=== PATIENT | male | born 1940 | race Caucasian/White ===

== ENCOUNTER → 2021-11-27 | Outpatient (CLI) | payer MEDICARE ==
[~2021-11-27] MED LIST: ALLOPURINOL300 MG PO; AMLODIPINE5 MG PO; ASPIRIN81 M1 PO; KEFLEX500 MG PO; LASIX20 MG PO; MOTRIN800 MG PO; MULTIPLE VITAMI1 TAB PO; OCEAN NASAL SPR45 ML NAS; PRAVASTATIN SOD40 MG PO; PRESERVISION1 SGL PO; VITAMIN D32000 I1 PO
== END | disposition home or self-care (01) ==
LOC: RAD 09:56
PROVIDERS: ATTEND Orthopaedic Surgery
DX: M16.12 Unilateral primary osteoarthritis, left hip (principal)

== ENCOUNTER 2022-07-23 10:36 | Emergency (ER) | payer MEDICARE ==
[~2022-07-23] VITALS: Ht 170.1 cm; Wt 99.8 kg
[2022-07-23 13:09] LABS: BASO % 0.3 % (0.0-1.0); EOS # 0.1 10*3/uL (0.0-0.4); EOS % 0.6 % (1.0-4.0); HEMATOCRIT 38.7 % (42.0-52.0); LYMPH # 0.7 10*3/uL (1.3-4.4); MEAN CELL VOLUME 85.1 fl (80.0-94.0); MEAN CORPUSCULAR HGB CONC 34.1 g/dl (33.0-37.0); MEAN PLATELET VOLUME 9.1 fl (9.6-12.3); MONO # 0.8 10*3/uL (0.1-1.0); MONO % 8.4 % (3.0-9.0); NEUT # 7.4 10*3/uL (2.3-7.9); NEUT % 82.4 % (47.0-73.0); PLATELET COUNT AUTOMATED 180 10*3/uL (130-400); RED BLOOD COUNT 4.55 10*6/uL (4.50-5.90)
[2022-07-23 13:30] LABS: ALKALINE PHOSPHATASE 73 U/L (46-116); BUN 15 mg/dl (9-23); CHLORIDE 103 mmol/L (98-107); POTASSIUM 3.7 mmol/L (3.4-5.1); SGPT/ALT 27 U/L (10-49); TOTAL PROTEIN 7.2 gm/dL (6.0-8.0)
[2022-07-23] MEDS ORDERED: SEPTDS PO (13:30)
== END 2022-07-23 13:35 | disposition home or self-care (01) ==
LOC: ED 10:36
PROVIDERS: Nurse Practitioner Family
DX: L03.811 Cellulitis of head [any part, except face] (principal); Z90.49 Acquired absence of other specified parts of digestive tract; Z79.899 Other long term (current) drug therapy; Z79.82 Long term (current) use of aspirin

== ENCOUNTER 2023-09-13 14:12 | Emergency (ER) | payer OTHER ==
[~2023-09-13] VITALS: Ht 170.1 cm; Wt 99.8 kg
[~2023-09-13 14:12] MED LIST changes: +SEPTDS PO
== END 2023-09-13 17:20 | disposition home or self-care (01) ==
LOC: ED 14:12
DX: S62.313A Displaced fracture of base of third metacarpal bone, left hand, initial encounter for closed fracture (principal); S62.304A Unspecified fracture of fourth metacarpal bone, right hand, initial encounter for closed fracture; I10 Essential (primary) hypertension; E78.5 Hyperlipidemia, unspecified; Z79.2 Long term (current) use of antibiotics; Z79.82 Long term (current) use of aspirin; Z79.899 Other long term (current) drug therapy; W01.198A Fall on same level from slipping, tripping and stumbling with subsequent striking against other object, initial encounter; Y93.89 Activity, other specified; Y92.093 Driveway of other non-institutional residence as the place of occurrence of the external cause; Y99.8 Other external cause status